=== PATIENT | female | born 1950 | race Caucasian/White ===

== ENCOUNTER 2016-03-27 15:01 | Inpatient (IN) ==
--- NOTE | 2016-03-27 15:46 | Internal Med History&Physical ---
Date of Encounter: 03/31/16 Time of Encounter: 15:44 Assessment and Plan (1) Acute hypoxemic respiratory failure Current visit: No Status: Resolved This resolved at the moment. She has had multiple draw also fluid with an indwelling catheter on the right side. (2) Acute respiratory failure with hypoxia Current visit: No Status: Resolved Much improved. 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 She has had large pleural eff Admitted From: Hospital to Hospital Transfer Plans for Post Hospital Care: Home History of present illness: Ms. Cabral is a 65 year old female She was brought through [facility] for deconditioning. So we will try to increase her strength or shortness to go home. Past Med Surg Social Fam HX - Past Medical History Medical history: arthritis, asthma, cancer, COPD, diabetes, GERD, hyperlipidemia , hypertension, other Psychiatric history: anxiety - Past Surgical History Surgical History: , hysterectomy - Social History Smoking Status: Former smoker Smokeless Tobacco Status: No Alcohol use: none Drug use: none - Family History Mother Adopted: No Family Member Ethnicity: Non- Living Status: Hx Family Cardiac Disorders: No Hx Family Respiratory Disorders: No Hx Family Cancer: No Hx Family GI Disorders: No Hx Family Endocrine Disorder: No Hx Family Neuromuscular Disorders: No Hx Family Neurologic Disorders: No Hx Family HEENT Disorders: No Hx Family Autoimmune Disorders: No Internal Medicine - H&P: Meds Aspirin/Calcium Carbonate/Mag [Aspirin Buffered 325 mg Tab] 325 mg PO DAILY 11/29 [History] Lisinopril [Zestril] 10 mg PO DAILY 01/23/16 [History] Magic Mouthwash 5 ml PO Q4H PRN #240 ml 01/30/16 [Rx] Bumetanide [Bumex] 0.5 mg PO DAILY #15 tablet 02/22/16 [Rx] Ondansetron HCl [Zofran] 4 mg PO Q6HR PRN #20 tablet 02/22/16 [Rx] Potassium Chloride 20 meq PO DAILY #30 tab.er.prt 02/22/16 [Rx] Prochlorperazine Maleate [Compazine] 10 mg PO Q6HR PRN #30 tablet 02/22/16 [Rx] TraZODone 50 mg PO HS #30 tablet 02/22/16 [Rx] Zolpidem [Ambien] 5 mg PO HS PRN #30 tablet 02/22/16 [Rx] Acetaminophen [Tylenol] 1,000 mg PO Q6HR PRN #120 tablet 03/07/16 [Rx] Ibuprofen [Motrin] 600 mg PO Q8HR PRN #90 tablet 03/07/16 [Rx] Oxycodone HCl 5 mg PO Q6H PRN #20 capsule 03/07/16 [Rx] Na Phos,M-B/Na Phos,Di-Ba [Fleet Enema Extra] 230 ml RC ONCE #1 enema 03/13/16 [ Rx] Albuterol Sulfate [Albuterol Inhaler] 2 puff IH Q4H PRN 03/23/16 [History] Dexamethasone [Decadron] 4 mg PO BID 03/27/16 [History] Docusate [Colace] 100 mg PO BID #100 capsule 03/27/16 [Rx] LORazepam [Ativan] 1 mg PO BID PRN 03/27/16 [History] Nicotine Patch [Nicoderm] 14 mg TD DAILY #14 patch.td24 03/27/16 [Rx] Polyethylene Glycol 3350 [MiraLAX] 17 gm PO DAILY PRN #30 powd.pack 03/27/16 [Rx ] Sennosides [Senna] 17.2 mg PO BID #100 tablet 03/27/16 [Rx] Allergies Bee Pollen Allergy (Verified 03/23/16 10:25) Anaphylaxis Penicillins Allergy (Verified 03/23/16 15:52) Hives All Systems PM: A 10-system review of systems was performed and is negative for pertinent findings except as documented above in the HPI. - Gastrointestinal Gastrointestinal: constipation - Constitutional Vitals: Temp Pulse Resp BP Pulse Ox 98.8 F 108 18 104/63 93 L 03/27/16 15:10 03/27/16 15:10 03/27/16 15:10 03/27/16 15:10 03/27/16 15:10 - Head Head exam: Present: atraumatic, normal inspection, normocephalic - Neck Neck exam general surgery: Present: supple, trachea midline. Absent: lymphadenopathy - Respiratory Respiratory exam: Present: CTAB. Absent: accessory muscle use, rales, rhonchi, wheezes - Cardiovascular Cardiovascular exam: Present: RRR, +S1, +S2. Absent: diastolic murmur, gallop, rubs, systolic murmur - GI/Abdominal GI/Abdominal exam: Present: normal bowel sounds, soft, no peritoneal signs. Absent: distended, tenderness (Patient is having tenderness across lower abdomen but no rebound rigidity etc. In addition she has virtually hyperactive bowel sounds) Internal Med - H&P Results - Labs CBC & Chem 7: 03/31/16 05:45 03/31/16 05:45 Labs: Low potassium will have to supplement and follow
[2016-03-27] MEDS ORDERED: Magic Mouthwash 10 ML UD Cup PO PRN (16:30)
[2016-03-27] MEDS ORDERED: NON-FORMULARY MEDICATION 1 EACH EACH (Na Phos,M-B/Na Phos,Di-Ba [Fleet Enema Extra] 230 ML RC SCH (16:30)
[2016-03-27] MEDS ORDERED: Ibuprofen 600 MG TABLET PO PRN (16:30)
[2016-03-27] MEDS ORDERED: Ondansetron ODT 4 MG TAB.RAPDIS PO PRN (16:30)
[2016-03-27] MEDS ORDERED: [UNRECOGNIZED DRUG - OTHER] RC PRN (18:10)
[2016-03-27] MEDS: Sennosides 8.6 MG TABLET PO SCH (22:13)
[2016-03-28 05:45] LABS: INR 1.1; Prothrombin Time 11.4 Seconds (9.4-12.1)
[2016-03-28 05:47] LABS: Hematocrit 30.4 % (35.3-44.9); Hemoglobin 9.7 g/dL (11.5-15.4); Mean Corpuscular HGB Conc 31.9 g/dL (31.6-35.5); Mean Corpuscular Hemoglobin 29.1 pg (28.0-33.3); Mean Corpuscular Volume 91.3 fL (83.0-100.0); Mean Platelet Volume 9.9 fL (9.4-12.4); Monocytes # 0.9 K/mcL (0.0-1.3); Nucleated Red Blood Cells 0.3 /100 WBC (0); Platelet Count 205 K/mcL (140-400); Red Blood Count 3.33 M/mcL (3.82-4.97); Red Cell Distribution Width 16.1 % (11.5-14.5)
[2016-03-28 05:49] LABS: Activated Partial Thrombo Time 17.3 Seconds (26.0-36.0)
[2016-03-28 05:53] LABS: BUN/Creatinine Ratio 37 (6-26); Blood Urea Nitrogen 22 mg/dL (7-20); Calcium 8.8 mg/dL (8.6-10.8); Carbon Dioxide 33 mEq/L (19-29); Chloride 99 mEq/L (98-109); Glucose 112 mg/dL (70-99); Osmolality,Calculated 296 (280-300); Potassium 3.7 mEq/L (3.5-4.5); Sodium 141 mEq/L (136-145); eGFR For African Americans > 60 (> 60); eGFR For Non-African Americans > 60 (> 60)
[2016-03-28] MEDS: BUFFERED ASPIRIN PO SCH (09:09)
[2016-03-28] MEDS: Sennosides 8.6 MG TABLET PO SCH ×2 (09:13→21:24)
[2016-03-28] MEDS: Nicotine 14 MG PATCH.TD24 TD SCH (09:14)
[2016-03-28] MEDS: Bumetanide 1 MG TABLET PO SCH (09:15)
[2016-03-28 09:26] LABS: Lymphocytes # 1.5 K/mcL (0.6-4.6); Neutrophils # 8.1 K/mcL (1.6-8.9); Platelet Estimate Normal (Normal)
--- NOTE | 2016-03-28 14:55 | Internal Med Progress Note ---
Date of Encounter: 03/28/16 Time of Encounter: 14:53 - Assessment and plan (1) Acute hypoxemic respiratory failure Current Visit: No Status: Acute Assessment and plan: Resolved for the moment (2) Acute respiratory failure with hypoxia Current Visit: No Status: Acute Assessment and plan: Resolved (3) Hypoxia Current Visit: No Status: Acute Assessment and plan: Holding her sats. (4) Lung cancer Current Visit: Yes Status: Acute Assessment and plan: Small cell CA of the lung with a large mass in the right side Qualifiers: Laterality: right Lung location: lower lobe of lung Qualified Code(s): C34.31 - Malignant neoplasm of lower lobe, right bronchus or lung - Time Spent With Patient less than 15 minutes - Subjective Interval history: I think the patient had very good day today. She walked from her room to the gym did some exercises and walk to back. Excellent progress. I am going to get a chest x-ray to evaluate her pleural effusion on the right side. - Constitutional Vitals: Temp Pulse Resp BP Pulse Ox 98.8 F 104 20 97/67 97 03/28/16 13:49 03/28/16 13:49 03/28/16 13:49 03/28/16 13:49 03/28/16 13:49 - Head Head exam: Present: normal inspection - Neck Neck exam general surgery: Present: supple, trachea midline. Absent: lymphadenopathy - Respiratory Respiratory exam: Present: decreased breath sounds, CTAB. Absent: accessory muscle use, rales, rhonchi, wheezes Additional comments: Slightly diminished on the right base. - Cardiovascular Cardiovascular exam: Present: RRR, +S1, +S2. Absent: diastolic murmur, gallop, rubs, systolic murmur Internal Medicine: Result - Labs CBC & Chem 7: 03/28/16 05:20 03/28/16 05:20 Labs: Short CBC 03/28/16 Range/Units 05:20 WBC 10.9 D (4.3-11.1) K/mcL Hgb 9.7 L (11.5-15.4) g/dL Hct 30.4 L (35.3-44.9) % Plt Count 205 (140-400) K/mcL Neutrophils # 8.1 (1.6-8.9) K/mcL BMP 03/28/16 05:20 Sodium 141 Potassium 3.7 Chloride 99 Carbon Dioxide 33 H BUN 22 H Creatinine 0.59 Glucose 112 H Calcium 8.8 - ABG Interpretation ABG results: PT/INR, D-dimer PT 11.4 Seconds (9.4-12.1) 03/28/16 05:20 Consult Discharge Plan - Plan Referrals: Trixie Montoya MD [Primary Care Provider] -
[2016-03-29] MEDS: *HR* OxyCODONE Immed Rel 5 MG TABLET PO PRN ×2 (01:50→17:40)
[2016-03-29] MEDS: Bumetanide 1 MG TABLET PO SCH (09:01)
[2016-03-29] MEDS: Nicotine 14 MG PATCH.TD24 TD SCH (09:02)
[2016-03-29] MEDS: BUFFERED ASPIRIN PO SCH (09:13)
[2016-03-29] MEDS: Sennosides 8.6 MG TABLET PO SCH ×2 (09:13→19:55)
--- NOTE | 2016-03-29 14:48 | Internal Med Progress Note ---
Date of Encounter: 03/29/16 Time of Encounter: 14:46 - Assessment and plan (1) Physical deconditioning Current Visit: Yes Status: Chronic Assessment and plan: PT and OT to work on increasing strength, endurance, transfer balance gait and improving overall ADL (2) Lung cancer Current Visit: Yes Status: Acute Assessment and plan: Small cell CA of the lung with a large mass in the right side Qualifiers: Laterality: right Lung location: lower lobe of lung Qualified Code(s): C34.31 - Malignant neoplasm of lower lobe, right bronchus or lung (3) Constipation Current Visit: Yes Status: Chronic Qualifiers: Constipation type: slow transit constipation Qualified Code(s): K59.01 - Slow transit constipation - Time Spent With Patient 25 - 35 minutes - Subjective Interval history: Overall feeling better. Still has mild shortness of breath. Has generalized fatigue. Dyspnea on exertion. Still has pain to her chest wall area. Still has issues with chronic constipation - Constitutional Vitals: Temp Pulse Resp BP Pulse Ox 98.5 F 96 18 130/79 99 03/29/16 07:18 03/29/16 07:18 03/29/16 07:18 03/29/16 07:18 03/29/16 07:18 General appearance: Present: A&O X 3, pleasant, no acute distress - Respiratory Respiratory exam: Present: decreased breath sounds. Absent: accessory muscle use, rales, rhonchi, wheezes - Cardiovascular Cardiovascular exam: Present: RRR, +S1, +S2. Absent: diastolic murmur, gallop, rubs, systolic murmur - GI/Abdominal GI/Abdominal exam: Present: normal bowel sounds, soft, no peritoneal signs. Absent: distended, tenderness - Extremities Exam Extremities exam: Present: warm, radial pulses palpable and symetrical. Absent : calf tenderness, cyanotic, pedal edema - Neurological Exam Neurological exam: Present: CN II-XII intact, oriented X3, no focal deficits. Absent: pronater drift, facial droop, speech deficit Internal Medicine: Result - Labs CBC & Chem 7: 03/28/16 05:20 03/28/16 05:20 - ABG Interpretation ABG results: PT/INR, D-dimer PT 11.4 Seconds (9.4-12.1) 03/28/16 05:20 - Impressions Impressions Chest X-Ray 03/28/16 14:35 IMPRESSION: There is a small right pleural effusion, with an indwelling tunneled pleural catheter. The right perihilar mass is again identified. Focal area of very small pleural fluid collection or pleural thickening at the left costophrenic angle. D/ / Edgardo Dubon MD / Edgardo Dubon MD Interpreting Provider: Edgardo Dubon MD - VTE Documentation of Mechanical Device: Graduated compression elastic hosiery Consult Discharge Plan - Plan Referrals: Trixie Montoya MD [Primary Care Provider] -
[2016-03-29] MEDS: *HR* LORazepam 1 MG TABLET PO PRN (19:55)
[2016-03-30] MEDS: Saline Nasal Spray 44 ML BOTTLE NS PRN ×2 (02:54→20:49)
[2016-03-30] MEDS: *HR* LORazepam 1 MG TABLET PO PRN ×3 (03:15→20:46)
[2016-03-30] MEDS: *HR* OxyCODONE Immed Rel 5 MG TABLET PO PRN ×3 (03:15→20:46)
[2016-03-30] MEDS: Nicotine 14 MG PATCH.TD24 TD SCH (08:31)
[2016-03-30] MEDS: Bumetanide 1 MG TABLET PO SCH (08:32)
[2016-03-30] MEDS: BUFFERED ASPIRIN PO SCH (08:34)
[2016-03-30] MEDS: Sennosides 8.6 MG TABLET PO SCH ×2 (08:34→21:29)
[2016-03-30] MEDS ORDERED: Ipratropium/Albuterol Neb 3 ML IH PRN (11:42)
[2016-03-31] MEDS: *HR* LORazepam 1 MG TABLET PO PRN ×2 (05:55→20:12)
[2016-03-31] MEDS: *HR* OxyCODONE Immed Rel 5 MG TABLET PO PRN (05:56)
[2016-03-31 06:11] LABS: Hematocrit 31.8 % (35.3-44.9); Hemoglobin 10.1 g/dL (11.5-15.4); Mean Corpuscular HGB Conc 31.8 g/dL (31.6-35.5); Mean Corpuscular Volume 91.4 fL (83.0-100.0); Mean Platelet Volume 9.9 fL (9.4-12.4); Nucleated Red Blood Cells 0.4 /100 WBC (0); Platelet Count 232 K/mcL (140-400); Red Blood Count 3.48 M/mcL (3.82-4.97); Red Cell Distribution Width 17.1 % (11.5-14.5)
[2016-03-31 06:24] LABS: BUN/Creatinine Ratio 36 (6-26); Blood Urea Nitrogen 21 mg/dL (7-20); Carbon Dioxide 33 mEq/L (19-29); Chloride 101 mEq/L (98-109); Glucose 97 mg/dL (70-99); Osmolality,Calculated 299 (280-300); Potassium 3.3 mEq/L (3.5-4.5); Sodium 143 mEq/L (136-145); eGFR For African Americans > 60 (> 60); eGFR For Non-African Americans > 60 (> 60)
[2016-03-31 06:29] LABS: Basophils # 0.6 K/mcL (0.0-0.2); Lymphocytes # 5.2 K/mcL (0.6-4.6); Monocytes # 2.3 K/mcL (0.0-1.3); Neutrophils # 20.6 K/mcL (1.6-8.9)
[2016-03-31 06:30] LABS: Platelet Estimate Normal (Normal)
[2016-03-31] MEDS: Bumetanide 1 MG TABLET PO SCH (09:15)
[2016-03-31] MEDS: Sennosides 8.6 MG TABLET PO SCH ×2 (09:15→20:22)
[2016-03-31] MEDS: Nicotine 14 MG PATCH.TD24 TD SCH (09:16)
[2016-03-31] MEDS: BUFFERED ASPIRIN PO SCH (09:16)
--- NOTE | 2016-03-31 14:59 | Internal Med Progress Note ---
Date of Encounter: 03/31/16 Time of Encounter: 14:39 - Assessment and plan (1) Lung cancer Current Visit: Yes Status: Acute Assessment and plan: Currently she appears to be stable with a slightly increasing right pleural effusion. Qualifiers: Laterality: right Lung location: lower lobe of lung Qualified Code(s): C34.31 - Malignant neoplasm of lower lobe, right bronchus or lung - Time Spent With Patient less than 15 minutes - Subjective Interval history: Patient is to change her heart is now requested to be a full code. - Constitutional Vitals: Temp Pulse Resp BP Pulse Ox 99.0 F 108 16 103/67 95 03/31/16 12:00 03/31/16 12:00 03/31/16 12:00 03/31/16 12:00 03/31/16 12:00 General appearance: Present: A&O X 3, pleasant, no acute distress - Head Head exam: Present: atraumatic, normal inspection, normocephalic - Neck Neck exam general surgery: Present: supple, trachea midline. Absent: lymphadenopathy - Respiratory Respiratory exam: Present: CTAB. Absent: accessory muscle use, rales, rhonchi, wheezes Additional comments: There is an increase in the pleural effusion. No complaints though shortness of breath. I follow her tomorrow again - Cardiovascular Cardiovascular exam: Present: RRR, +S1, +S2. Absent: diastolic murmur, gallop, rubs, systolic murmur Internal Medicine: Result - Labs CBC & Chem 7: 03/31/16 05:45 03/31/16 05:45 Labs: Short CBC 03/31/16 Range/Units 05:45 WBC 28.6 H D (4.3-11.1) K/mcL Hgb 10.1 L (11.5-15.4) g/dL Hct 31.8 L (35.3-44.9) % Plt Count 232 (140-400) K/mcL Neutrophils # 20.6 H (1.6-8.9) K/mcL BMP 03/31/16 05:45 Sodium 143 Potassium 3.3 L Chloride 101 Carbon Dioxide 33 H BUN 21 H Creatinine 0.59 Glucose 97 Calcium 9.0 I am not sure why the white count jumped so much. She has not gotten a new meds and I do not quite understand so we will follow this. - ABG Interpretation ABG results: PT/INR, D-dimer PT 11.4 Seconds (9.4-12.1) 03/28/16 05:20 - Impressions Impressions Chest X-Ray 03/31/16 15:33 IMPRESSION: Moderate-sized right pleural effusion, increased from prior. D/ / Maximus Ordoñez MD / Maximus Ordoñez MD Interpreting Provider: Maximus Ordoñez MD - VTE Documentation of Mechanical Device: Graduated compression elastic hosiery Consult Discharge Plan - Plan Referrals: Trixie Montoya MD [Primary Care Provider] -
[2016-04-01 05:31] LABS: Hematocrit 30.4 % (35.3-44.9); Hemoglobin 9.7 g/dL (11.5-15.4); Mean Corpuscular HGB Conc 31.9 g/dL (31.6-35.5); Mean Corpuscular Hemoglobin 29.4 pg (28.0-33.3); Mean Corpuscular Volume 92.1 fL (83.0-100.0); Mean Platelet Volume 9.8 fL (9.4-12.4); Nucleated Red Blood Cells 0.3 /100 WBC (0); Platelet Count 236 K/mcL (140-400); Red Cell Distribution Width 17.2 % (11.5-14.5)
[2016-04-01 05:43] LABS: Monocytes # 1.8 K/mcL (0.0-1.3)
[2016-04-01] MEDS: Sennosides 8.6 MG TABLET PO SCH ×2 (08:59→20:11)
[2016-04-01] MEDS: Nicotine 14 MG PATCH.TD24 TD SCH (08:59)
[2016-04-01] MEDS: BUFFERED ASPIRIN PO SCH (09:00)
[2016-04-01] MEDS: *HR* LORazepam 1 MG TABLET PO PRN ×2 (09:00→20:10)
[2016-04-01] MEDS: Bumetanide 1 MG TABLET PO SCH (09:00)
--- NOTE | 2016-04-01 13:54 | Internal Med Progress Note ---
Date of Encounter: 04/01/16 Time of Encounter: 13:51 - Assessment and plan (1) Lung cancer Current Visit: Yes Status: Acute Qualifiers: Laterality: right Lung location: lower lobe of lung Qualified Code(s): C34.31 - Malignant neoplasm of lower lobe, right bronchus or lung - Subjective Interval history: Patient had a change of heart. wants to be a full code.patient tried to cut back on the narcotics , opioids because of constipation but was unable to do so. We will have to continue aggressive therapy for Bm's - Constitutional Vitals: Temp Pulse Resp BP Pulse Ox 98.1 F 81 16 110/70 99 04/01/16 07:32 04/01/16 07:32 04/01/16 07:32 04/01/16 07:32 04/01/16 07:32 General appearance: Present: A&O X 3, pleasant, no acute distress - Head Head exam: Present: atraumatic, normal inspection, normocephalic - Neck Neck exam general surgery: Present: supple, trachea midline. Absent: lymphadenopathy - Respiratory Respiratory exam: Present: decreased breath sounds, CTAB. Absent: accessory muscle use, rales, rhonchi, wheezes Additional comments: X-ray today said no real change in the right pleural effusion. They need to monitor on a daily basis. - Cardiovascular Cardiovascular exam: Present: RRR, +S1, +S2. Absent: diastolic murmur, gallop, rubs, systolic murmur - GI/Abdominal GI/Abdominal exam: Present: normal bowel sounds, soft, no peritoneal signs. Absent: distended, tenderness Internal Medicine: Result - Labs CBC & Chem 7: 04/01/16 05:00 03/31/16 05:45 Labs: Short CBC 04/01/16 Range/Units 05:00 WBC 22.9 H (4.3-11.1) K/mcL Hgb 9.7 L (11.5-15.4) g/dL Hct 30.4 L (35.3-44.9) % Plt Count 236 (140-400) K/mcL Neutrophils # 16.0 H (1.6-8.9) K/mcL - ABG Interpretation ABG results: PT/INR, D-dimer PT 11.4 Seconds (9.4-12.1) 03/28/16 05:20 - Impressions Impressions Chest X-Ray 04/01/16 14:41 IMPRESSION: Unchanged right basilar consolidation and pleural effusion D/ / Jared Stoddard MD / Jared Stoddard MD Interpreting Provider: Jared Stoddard MD - VTE Documentation of Mechanical Device: Graduated compression elastic hosiery Consult Discharge Plan - Plan Referrals: Trixie Montoya MD [Primary Care Provider] - 04/11/16 11:30 am
[2016-04-02] MEDS: *HR* OxyCODONE Immed Rel 5 MG TABLET PO PRN ×2 (01:15→20:09)
[2016-04-02] MEDS: Bumetanide 1 MG TABLET PO SCH (08:18)
[2016-04-02] MEDS: Nicotine 14 MG PATCH.TD24 TD SCH (08:20)
[2016-04-02] MEDS: BUFFERED ASPIRIN PO SCH (08:21)
[2016-04-02] MEDS: Sennosides 8.6 MG TABLET PO SCH ×2 (08:21→20:09)
--- NOTE | 2016-04-02 14:44 | Internal Med Progress Note ---
Date of Encounter: 04/02/16 Time of Encounter: 14:42 - Assessment and plan (1) Lung cancer Current Visit: Yes Status: Acute Assessment and plan: Patient is here for deconditioning due to her lung cancer and oncology treatment. Qualifiers: Laterality: right Lung location: lower lobe of lung Qualified Code(s): C34.31 - Malignant neoplasm of lower lobe, right bronchus or lung - Time Spent With Patient less than 15 minutes - Constitutional Vitals: Temp Pulse Resp BP Pulse Ox 97.0 F L 99 18 127/80 96 04/02/16 07:45 04/02/16 07:45 04/02/16 07:45 04/02/16 07:45 04/02/16 07:45 General appearance: Present: A&O X 3, pleasant, no acute distress - Head Head exam: Present: atraumatic, normal inspection, normocephalic - Neck Neck exam general surgery: Present: supple, trachea midline. Absent: lymphadenopathy - Respiratory Respiratory exam: Present: CTAB. Absent: accessory muscle use, rales, rhonchi, wheezes - Cardiovascular Cardiovascular exam: Present: RRR, +S1, +S2. Absent: diastolic murmur, gallop, rubs, systolic murmur Internal Medicine: Result - Labs CBC & Chem 7: 04/01/16 05:00 03/31/16 05:45 Labs: Lab is stable except for potassium - ABG Interpretation ABG results: PT/INR, D-dimer PT 11.4 Seconds (9.4-12.1) 03/28/16 05:20 - Impressions Impressions Chest X-Ray 04/02/16 06:00 IMPRESSION: 1. Stable moderate right pleural effusion and trace left pleural effusion. 2. Stable right lung base consolidation. D/ / 04/02/2016 07:44:38 Maycol Laurent MD / kanika Interpreting Provider: Maycol Laurent MD - VTE Documentation of Mechanical Device: Graduated compression elastic hosiery Consult Discharge Plan - Plan Referrals: Trixie Montoya MD [Primary Care Provider] - 04/11/16 11:30 am
[2016-04-02] MEDS: *HR* LORazepam 1 MG TABLET PO PRN (20:09)
[2016-04-03] MEDS: *HR* LORazepam 1 MG TABLET PO PRN ×2 (08:22→21:54)
[2016-04-03] MEDS: Nicotine 14 MG PATCH.TD24 TD SCH (08:23)
[2016-04-03] MEDS: Sennosides 8.6 MG TABLET PO SCH ×2 (08:24→19:52)
[2016-04-03] MEDS: BUFFERED ASPIRIN PO SCH (08:24)
[2016-04-03] MEDS: Bumetanide 1 MG TABLET PO SCH (08:24)
--- NOTE | 2016-04-03 13:31 | Internal Med Progress Note ---
Date of Encounter: 04/03/16 Time of Encounter: 13:27 - Assessment and plan (1) Lung cancer Current Visit: Yes Status: Acute Assessment and plan: Patient had extensive treatment for small cell CA of the lung on the right. Qualifiers: Laterality: right Lung location: lower lobe of lung Qualified Code(s): C34.31 - Malignant neoplasm of lower lobe, right bronchus or lung - Time Spent With Patient less than 15 minutes - Subjective Interval history: Patient is cooperating with PT and OT today. She moves very slowly but is doing reasonably well walking from the gym to her room and back. No more complaints currently of shortness of breath. I will follow daily pleural effusions have not changed greatly. I am also going to check a chest x-ray tomorrow and she will be discharged tomorrow - Constitutional Vitals: Temp Pulse Resp BP Pulse Ox 97.4 F L 114 17 119/75 92 L 04/03/16 08:06 04/03/16 08:06 04/03/16 08:06 04/03/16 08:06 04/03/16 08:06 General appearance: Present: A&O X 3, pleasant, no acute distress - Head Head exam: Present: atraumatic, normal inspection, normocephalic - Neck Neck exam general surgery: Present: supple, trachea midline. Absent: lymphadenopathy - Respiratory Respiratory exam: Present: decreased breath sounds, CTAB. Absent: accessory muscle use, rales, rhonchi, wheezes Additional comments: Especially on the right side. This the affected side with pleural effusion and the mass - Cardiovascular Cardiovascular exam: Present: RRR, +S1, +S2. Absent: diastolic murmur, gallop, rubs, systolic murmur Internal Medicine: Result - Labs CBC & Chem 7: 04/01/16 05:00 03/31/16 05:45 Labs: Recheck Chem-7 and CBC in the a.m. Along with a chest x-ray - ABG Interpretation ABG results: PT/INR, D-dimer PT 11.4 Seconds (9.4-12.1) 03/28/16 05:20 - VTE Documentation of Mechanical Device: Graduated compression elastic hosiery Consult Discharge Plan - Plan Referrals: Trixie Montoya MD [Primary Care Provider] - 04/11/16 11:30 am Bandar Saravia MD [Partnered Physician] - 04/07/16 8:30 am ()
[2016-04-03] MEDS: *HR* OxyCODONE Immed Rel 5 MG TABLET PO PRN (19:50)
[2016-04-04] MEDS: *HR* OxyCODONE Immed Rel 5 MG TABLET PO PRN (03:39)
[2016-04-04 05:51] LABS: Basophils # 0.1 K/mcL (0.0-0.2); Basophils % 0.7 %; Eosinophils % 0.2 %; Hematocrit 31.1 % (35.3-44.9); Hemoglobin 9.9 g/dL (11.5-15.4); Immature Granulocytes % 7.3 % (0-4); Lymphocytes # 2.1 K/mcL (0.6-4.6); Lymphocytes % 11.4 %; Mean Corpuscular HGB Conc 31.8 g/dL (31.6-35.5); Mean Corpuscular Hemoglobin 29.4 pg (28.0-33.3); Mean Corpuscular Volume 92.3 fL (83.0-100.0); Mean Platelet Volume 9.6 fL (9.4-12.4); Monocytes # 1.1 K/mcL (0.0-1.3); Monocytes % 5.8 %; Nucleated Red Blood Cells 0.1 /100 WBC (0); Platelet Count 362 K/mcL (140-400); Red Blood Count 3.37 M/mcL (3.82-4.97); Red Cell Distribution Width 17.9 % (11.5-14.5); Segmented Neutrophils % 74.6 %
[2016-04-04 05:55] LABS: Neutrophils # 13.7 K/mcL (1.6-8.9)
[2016-04-04 06:01] LABS: BUN/Creatinine Ratio 38 (6-26); Blood Urea Nitrogen 21 mg/dL (7-20); Calcium 9.3 mg/dL (8.6-10.8); Carbon Dioxide 30 mEq/L (19-29); Chloride 100 mEq/L (98-109); Glucose 95 mg/dL (70-99); Osmolality,Calculated 303 (280-300); Potassium 3.2 mEq/L (3.5-4.5); Sodium 145 mEq/L (136-145); eGFR For African Americans > 60 (> 60); eGFR For Non-African Americans > 60 (> 60)
[2016-04-04 07:59] VITALS: BP 130/90
[2016-04-04] MEDS: Nicotine 14 MG PATCH.TD24 TD SCH (08:12)
[2016-04-04] MEDS: Bumetanide 1 MG TABLET PO SCH (08:13)
[2016-04-04] MEDS: Sennosides 8.6 MG TABLET PO SCH (08:18)
[2016-04-04] MEDS: BUFFERED ASPIRIN PO SCH (08:18)
[2016-04-04] MEDS: *HR* LORazepam 1 MG TABLET PO PRN (13:15)
--- NOTE | 2016-04-04 13:23 | Discharge Summary ---
Date of Encounter: 04/04/16 Time of Encounter: 13:22 - Discharge Diagnosis (1) Lung cancer Priority: Primary Status: Acute Comments: Patient's dealing with a diagnosis of pleural effusion and the chemotherapy as well as possible Qualifiers: Laterality: right Lung location: lower lobe of lung Qualified Code(s): C34.31 - Malignant neoplasm of lower lobe, right bronchus or lung - Discharge Medications Home Medications: Aspirin/Calcium Carbonate/Mag [Aspirin Buffered 325 mg Tab] 325 mg PO DAILY 11/29 [History] Lisinopril [Zestril] 10 mg PO DAILY 01/23/16 [History] Magic Mouthwash 5 ml PO Q4H PRN #240 ml 01/30/16 [Rx] Bumetanide [Bumex] 0.5 mg PO DAILY #15 tablet 02/22/16 [Rx] Ondansetron HCl [Zofran] 4 mg PO Q6HR PRN #20 tablet 02/22/16 [Rx] Potassium Chloride 20 meq PO DAILY #30 tab.er.prt 02/22/16 [Rx] Prochlorperazine Maleate [Compazine] 10 mg PO Q6HR PRN #30 tablet 02/22/16 [Rx] TraZODone 50 mg PO HS #30 tablet 02/22/16 [Rx] Zolpidem [Ambien] 5 mg PO HS PRN #30 tablet 02/22/16 [Rx] Acetaminophen [Tylenol] 1,000 mg PO Q6HR PRN #120 tablet 03/07/16 [Rx] Ibuprofen [Motrin] 600 mg PO Q8HR PRN #90 tablet 03/07/16 [Rx] Oxycodone HCl 5 mg PO Q6H PRN #20 capsule 03/07/16 [Rx] Na Phos,M-B/Na Phos,Di-Ba [Fleet Enema Extra] 230 ml RC ONCE #1 enema 03/13/16 [ Rx] Albuterol Sulfate [Albuterol Inhaler] 2 puff IH Q4H PRN 03/23/16 [History] Dexamethasone [Decadron] 4 mg PO BID 03/27/16 [History] Docusate [Colace] 100 mg PO BID #100 capsule 03/27/16 [Rx] LORazepam [Ativan] 1 mg PO BID PRN 03/27/16 [History] Nicotine Patch [Nicoderm] 14 mg TD DAILY #14 patch.td24 03/27/16 [Rx] Polyethylene Glycol 3350 [MiraLAX] 17 gm PO DAILY PRN #30 powd.pack 03/27/16 [Rx ] Sennosides [Senna] 17.2 mg PO BID #100 tablet 03/27/16 [Rx] Bed - Hospital [Hospital Bed] 1 each .ROUTE AD #1 each 04/02/16 [Rx] Magic Mouthwash [Magic Mouthwash BLM] 10 ml PO QID PRN #240 ml 04/02/16 [Rx] Allergies/Adverse Reactions: Allergies Bee Pollen Allergy (Verified 04/02/16 13:05) Anaphylaxis Penicillins Allergy (Verified 04/02/16 13:05) Hives Date of admission: 03/27/16 15:01 Primary care physician: Trixie Montoya MD Consults: 03/27/16 16:34 Consult to Nutrition [CONS] Routine Comment: Consulting Provider: NUTRITION Reason for Dietary Consult: MST Score 03/27/16 16:36 Consult to Occupational Therapy [CONS] Routine Comment: eval and treat Consult to Physical Therapy [CONS] Routine Comment: eval and treat Consult to Recreational Therapy [CONS] Routine Comment: 03/31/16 13:39 Consult to Psychology [CONS] Routine Consulting Provider: Vivian Ramsay Reason for Consult: eval and tx Call Completed: Yes Discharging clinician: Naif Dize Anticipated date of discharge: 04/04/16 - Patient Status Disposition: Home Health Service Condition: Serious Functional capacity at discharge: uses cane/walker Overall status at discharge: patient is progressing back to baseline - Discharge Instructions Instructions: Chronic Obstructive Pulmonary Disease (DC), Anemia (DC), Anxiety (DC) Follow Up With: Trixie Montoya MD [Primary Care Provider] - 04/11/16 11:30 am Bandar Saravia MD [Partnered Physician] - 04/07/16 8:30 am () - Diet and Activity Activity: ambulate only with your walker Diet: advance to your usual diet Interval History: Patient was transferred here after undergoing some chemotherapy and becoming somewhat deconditioned. Hospital course: Ms. Cabral is a 65 year old female She is walking from her room to the gym and back again dissipating in therapy - Time Spent with Patient Total time spent providing and/or coordinating discharge services: Less than 30 minutes - Constitutional Vitals: Temp Pulse Resp BP Pulse Ox 97.3 F L 99 18 130/90 98 04/04/16 07:57 04/04/16 07:57 04/04/16 07:57 04/04/16 07:57 04/04/16 07:57 General appearance: Present: A&O X 3, pleasant, no acute distress - Head Head exam: Present: atraumatic, normal inspection, normocephalic - Respiratory Respiratory exam: Present: decreased breath sounds, CTAB. Absent: accessory muscle use, rales, rhonchi, wheezes Additional comments: Right greater than left - Cardiovascular Cardiovascular exam: Present: RRR, +S1, +S2. Absent: diastolic murmur, gallop, rubs, systolic murmur - GI/Abdominal GI/Abdominal exam: Present: normal bowel sounds, soft, no peritoneal signs. Absent: distended, tenderness - VTE Documentation of Mechanical Device: Graduated compression elastic hosiery
--- NOTE | 2016-04-07 11:29 | Physician Discharge Referral ---
Home Health/Hosp Referral Info Transfer to: Home Health Provider in Charge Post Discharge: PCP - Diagnosis (1) Lung cancer Priority: Primary Status: Acute - Respiratory Orders Smoking Cessation: Smoking cessation has been advised. For more information, call the [place] Tobacco Quit Line at 0-888-BIAO-NOW. - Diet/Nutrition Diet/Nutrition Orders: No Concentrated Sweets - Activity Activity Orders: Up ad fabi - Services Needed Following services are medically necessary services: Nursing, Physical Therapy - Transfer Medications Home Medications: Aspirin/Calcium Carbonate/Mag [Aspirin Buffered 325 mg Tab] 325 mg PO DAILY 11/29 [History] Lisinopril [Zestril] 10 mg PO DAILY 01/23/16 [History] Magic Mouthwash 5 ml PO Q4H PRN #240 ml 01/30/16 [Rx] Bumetanide [Bumex] 0.5 mg PO DAILY #15 tablet 02/22/16 [Rx] Ondansetron HCl [Zofran] 4 mg PO Q6HR PRN #20 tablet 02/22/16 [Rx] Potassium Chloride 20 meq PO DAILY #30 tab.er.prt 02/22/16 [Rx] Prochlorperazine Maleate [Compazine] 10 mg PO Q6HR PRN #30 tablet 02/22/16 [Rx] TraZODone 50 mg PO HS #30 tablet 02/22/16 [Rx] Zolpidem [Ambien] 5 mg PO HS PRN #30 tablet 02/22/16 [Rx] Acetaminophen [Tylenol] 1,000 mg PO Q6HR PRN #120 tablet 03/07/16 [Rx] Ibuprofen [Motrin] 600 mg PO Q8HR PRN #90 tablet 03/07/16 [Rx] Oxycodone HCl 5 mg PO Q6H PRN #20 capsule 03/07/16 [Rx] Na Phos,M-B/Na Phos,Di-Ba [Fleet Enema Extra] 230 ml RC ONCE #1 enema 03/13/16 [ Rx] Albuterol Sulfate [Albuterol Inhaler] 2 puff IH Q4H PRN 03/23/16 [History] Dexamethasone [Decadron] 4 mg PO BID 03/27/16 [History] Docusate [Colace] 100 mg PO BID #100 capsule 03/27/16 [Rx] LORazepam [Ativan] 1 mg PO BID PRN 03/27/16 [History] Nicotine Patch [Nicoderm] 14 mg TD DAILY #14 patch.td24 03/27/16 [Rx] Polyethylene Glycol 3350 [MiraLAX] 17 gm PO DAILY PRN #30 powd.pack 03/27/16 [Rx ] Sennosides [Senna] 17.2 mg PO BID #100 tablet 03/27/16 [Rx] Bed - Hospital [Hospital Bed] 1 each .ROUTE AD #1 each 04/02/16 [Rx] Magic Mouthwash [Magic Mouthwash BLM] 10 ml PO QID PRN #240 ml 04/02/16 [Rx] Allergies/Adverse Reactions: Allergies Bee Pollen Allergy (Verified 04/02/16 13:05) Anaphylaxis Penicillins Allergy (Verified 04/02/16 13:05) Hives Certification: Further, I certify that my clinical findings support that this patient is homebound (i.e. absences from home require considerable and taxing effort and are for medical reasons or muslim services or infrequently or short duration when for other reasons) because: Homebound Reason: Absences from home are contraindicated except to recieve medical care Attestation: My signature below is to certify that this patient is under my care and that I, or nurse practitioner, or a physician's delinquent tax collector assistant working with me, has a face-to -face encounter with this patient.
== END 2016-04-04 19:10 | disposition home health service (06) | DRG 556 ==
LOC: INPGRE 15:01
PROVIDERS: ADMIT Internal Medicine; ATTEND Internal Medicine